=== PATIENT | female | born 1985 | race African-American/Black ===

== ENCOUNTER 2022-12-25 18:38 | Emergency (ER) | payer OTHER ==
[~2022-12-25] VITALS: Ht 170.2 cm; Wt 81.6 kg
[2022-12-25 18:57] VITALS: BP 146/86
[2022-12-25] MEDS ORDERED: FAMO20TA80 PO (19:26)
[2022-12-25] MEDS ORDERED: DIPH25TA62 PO (19:26)
[2022-12-25] MEDS ORDERED: ONDANSETRON 4 MG TAB.RAPDIS SL ONE (19:30)
[2022-12-25] MEDS ORDERED: FAMOTIDINE (20 MG) 20 MG TABLET PO ONE (19:30)
[2022-12-25] MEDS ORDERED: diphenhydrAMINE HCL 25 MG CAPSULE PO ONE (19:30)
[2022-12-25] MEDS ORDERED: ONDANSETRON 4 MG TAB.RAPDIS ONE (20:25)
[2022-12-25] MEDS ORDERED: diphenhydrAMINE HCL 25 MG CAPSULE ONE (20:25)
[2022-12-25] MEDS ORDERED: FAMOTIDINE (20 MG) 20 MG TABLET ONE (20:25)
--- NOTE | 2022-12-25 21:03 | NUR ---
Patient discharged to home in stable condition. Written and verbal after care instructions given. Patient verbalizes understanding of instruction. Pt ambulatory with a steady gait
== END 2022-12-25 21:03 | disposition home or self-care (01) ==
LOC: ER 18:53
DX: R42 Dizziness and giddiness (principal); R06.02 Shortness of breath; T50.905A Adverse effect of unspecified drugs, medicaments and biological substances, initial encounter; E11.9 Type 2 diabetes mellitus without complications; F20.9 Schizophrenia, unspecified; Z60.2 Problems related to living alone; Y92.89 Other specified places as the place of occurrence of the external cause
CPT/HCPCS: 99283; Q0163; Q0162